=== PATIENT | female | born 1935 | race Caucasian/White ===

== ENCOUNTER 2019-11-13 11:37 | Outpatient (RCR) | payer MEDICARE, OTHER, MEDICAID, SELFPAY ==
[2019-11-13 12:19] LABS: Basophils % 0.1 %; Eosinophils # 0.4 10^3/uL (0.0-0.8); Eosinophils % 5.1 %; Hematocrit 35.8 % (37.0-47.0); Hemoglobin 11.3 g/dL (11.5-15.3); Lymphocytes # 1.8 10^3/uL (0.8-4.8); Lymphocytes % 24.1 %; Mean Corpuscular HGB Conc 31.6 g/dL (30.0-36.0); Mean Corpuscular Hemoglobin 31.4 pg (28.0-34.0); Mean Corpuscular Volume 99.4 fL (81-99); Mean Platelet Volume 10.9 fL (7.4-10.4); Monocytes # 0.5 10^3/uL (0.2-0.9); Monocytes % 6.6 %; Neutrophils # 4.8 10^3/uL (1.8-7.7); Neutrophils % 63.8 %; Nucleated Red Blood Cells % 0 %; Platelet Count 152 10^3/cmm (130-400); White Blood Count 7.4 10^3/uL (4.0-10.0)
[2019-11-13 12:52] LABS: Uric Acid 5.7 mg/dL (2.4-5.7)
[2019-11-13 13:48] LABS: C Reactive Protein 15.2 mg/L (0.0-4.9)
== END 2019-11-20 23:59 | disposition home or self-care (01) ==
LOC: LAB 11:37
PROVIDERS: Family Provider Family Medicine; Visit Provider Nurse Practitioner Family
DX: Z01.89 Encounter for other specified special examinations (principal)
CPT/HCPCS: 84550; 85025; 86140

== ENCOUNTER 2019-12-22 08:30 | Outpatient (CLI) | payer MEDICARE, MEDICAID, SELFPAY ==
--- NOTE | 2019-12-22 08:30 | CT_ITS ---
WS: [id number] CT scan of the abdominal aorta and the lower extremity arteries. Additional two-dimensional coronal a nd sagittal reconstruction was performed. MIP images were also performed. 12/22/2019 Clinical Data: perip artery disease Comparison: CT abdomen and pelvis, 06/01/2015. DLP: 2143.[address] scans at [facility] use at least one of these dose optimization techniques: automat ed exposure control; mA and/or kV adjustment per patient size (includes targeted exams where dose is matched to clinical indication); or iterative reconstruction. Findings: Abdominal aorta shows atherosclerotic change but no aneurysm. The celiac and superior mesenteric tong rom remain patent. There is a right renal artery stent unchanged. The left renal arteries unremarkab le. The common iliac arteries are well seen and they bifurcate into the internal and external iliac a rteries. The common femoral arteries are normal and the superficial femoral arteries fill normally. T here is atherosclerotic change of the length of both superficial femoral arteries. The popliteal tong rom and arteries of the trifurcations all fill but there is atherosclerotic change of all of these a rteries. The contrast material can be seen down to the level of the feet. No obstruction or significa nt stenosis is seen. CT abdomen and pelvis findings: There is a 3.52 cm enhancing lesion of the superior lateral aspect of the left kidney which was not p resent before. This could represent a small renal cancer. Small bilateral renal cortical cysts are no [place]. The lower lungs show no nodules or masses. There is a small left effusion. There is a small pericardi al effusion and cardiomegaly. The liver, spleen, gallbladder, pancreas and adrenal glands are unremar kable. The left kidney is small but it does have an exophytic 3.52 cm lesion which could represent a small l eft renal tumor. The renal cortices are both thin but the right kidney is larger than left. No hydron ephrosis or renal calculi can be seen. The stomach, small bowel and colon show no appendicitis or div erticulitis. There are numerous sigmoid diverticula and a large amount of fecal material throughout t he colon. The bladder and rectum are not remarkable. The patient has a right hip arthroplasty in good position. There is repair of a left intertrochanteric hip fracture with a long intramedullary carmen ex tending the length of the femur. There is a right knee arthroplasty. There is osteoarthritic change o f the lower thoracic vertebral bodies. There is osteoarthritis of the lumbar vertebral bodies with d isc narrowing at L3-L4 and degenerative disks at L4-L5 and L5-S1. There is a subluxation of L3 on L4 of 0.[address]/CT angio abd aorta runof [id number] Impression: 1. Exophytic 3.5 cm mass in the upper outer aspect of the left kidney which co uld represent a renal tumor. 2. Atherosclerotic changes of the abdominal aorta and all the distal arteries w ith no significant stenoses or occlusions. Contrast material is seen traveling into the arteries of the ankle and feet. 3.
[2019-12-22] MEDS: iodixanol 320 mg/mL 100mL Btl IV (09:50)
== END 2019-12-22 08:31 | disposition home or self-care (01) ==
LOC: RAD 08:34
PROVIDERS: Family Provider Family Medicine; PCP Family Medicine; Visit Provider Thoracic Surgery (Cardiothoracic Vascular Surgery)
DX: I73.9 Peripheral vascular disease, unspecified (principal); I70.0 Atherosclerosis of aorta; N28.89 Other specified disorders of kidney and ureter
CPT/HCPCS: 75635

== ENCOUNTER 2020-02-01 19:34 | Inpatient (IN) | payer MEDICARE, MEDICAID, SELFPAY ==
[2020-02-01] VITALS (8 sets, daily range): BP systolic 109–144; BP diastolic 46–54; PULSE 73–107; RESP 23–28; TEMP 37–37.2; O2SAT 65–100; BMI 29.0
--- NOTE | 2020-02-01 19:41 | W.ED.AMS ---
HPI - Altered Mental Status General: Chief Complaint: Shortness of Breath/Dyspnea Stated Complaint: SOB Time Seen by Provider: 02/01/20 19:38 Source: EMS Mode of arrival: EMS Limitations: altered mental status History of Present Illness: HPI narrative: 84-year-old female here from [facility] with altered mental status and respiratory distress. Patient wears 3 to 4 L oxygen there and was satting 80% on that. Per correction staff patient usually is awake and alert and able answer all her questions. Here patient only moans and is able to answer any my questions. She has been afebrile and temperature is 97 with EMS. No known cough. Patient's abdomen is distended here. She has had a history of a stroke in the past and is on blood thinners. Review of Systems General: Reports: ROS unobtainable due to mental status PFS ED PFSH: Medical History (Updated 02/01/20 @ 23:37 by Graciela Ruiz MD) PAD (peripheral artery disease) Family History (Updated 12/03/19 @ 15:48 by Salma Biggs LPN) Other CAD (coronary artery disease) Cancer Diabetes Hyperlipidemia Hypertension Social History (Updated 12/03/19 @ 15:48 by Salma Biggs LPN) Smoking and tobacco status: unknown if ever smoked Alcohol intake: never Physical Exam Const: EXAM LIMITATIONS: altered mental status GENERAL APPEARANCE: in distress HENMT: COMMON NORMALS: normocephalic and head/scalp atraumatic HEAD & SCALP: normocephalic and atraumatic Eye: COMMON NORMALS: PERRL and EOMs intact bilaterally PUPIL: Yes PERRL Neck/C-Spine: COMMON NORMALS: full ROM and supple Chest: COMMONS NORMALS: inspection of chest normal and palpation of chest normal Resp: COMMON NORMALS: no retractions and no use of accessory muscles EFFORT & INSPECTION: Yes tachypneic AUSCULTATION: rales Cardio: COMMON NORMALS: regular rate, regular rhythm and no murmurs RATE: regular rate RHYTHM: regular rhythm GI: COMMON NORMALS: no masses INSPECTION: Yes abdominal distension AUSCULTATION: Yes hypoactive bowel sounds PALPATION: Yes firm Extremity: COMMON NORMALS: normal to inspection and full ROM Neuro: COMMON NORMALS: moves all extremities and no focal motor deficits Psych: COMMON NORMALS: mental status grossly normal, thought process normal and cooperative THOUGHT PROCESS: normal thought process Skin: COMMON NORMALS: no rashes or lesions noted and no wounds GENERAL SKIN EXAM: no rashes or lesions noted Course Vital Signs: Vital signs: Vital Signs Temperature 98.6 F 02/01/20 19:35 Pulse Rate 89 02/01/20 20:15 Respiratory Rate 28 H 02/01/20 20:15 Blood Pressure 144/54 02/01/20 20:15 Pulse Oximetry 98 02/01/20 20:15 MDM - Altered Mental Status MDM Narrative: Medical decision making narrative: Patient presents here with altered mental status along with shortness of breath and was found to have pneumonia on CT. Patient continued to have altered no status here likely due to her pneumonia. Patient started on antibiotics and did get blood cultures. I spoke to hospitalist will admit to the hospital. Patient will be tested for coronavirus as well. Lab Data: Labs: Lab Results 02/01/20 02/01/20 02/01/20 Range/Units 19:47 19:47 19:47 WBC 11.0 H (4.0-10.0) 10^3/ uL RBC 4.34 (4.1-5.3) 10^6/u L Hgb 12.8 (11.5-15.3) g/dL Hct 41.6 (37.0-47.0) % MCV 95.9 (81-99) fL MCH 29.5 (28.0-34.0) pg MCHC 30.8 (30.0-36.0) g/dL RDW 14.8 (12.1-15.1) % Plt Count 289 (130-400) 10^3/c mm MPV 9.9 (7.4-10.4) fL Neut % (Auto) 87.4 % Lymph % (Auto) 9.8 % [place] % (Auto) 1.0 % Eos % (Auto) 1.4 % Baso % (Auto) 0.2 % Neut # (Auto) 9.7 H (1.8-7.7) 10^3/u L Lymph # (Auto) 1.1 (0.8-4.8) 10^3/u L [place] # (Auto) 0.1 L (0.2-0.9) 10^3/u L Eos # (Auto) 0.2 (0.0-0.8) 10^3/u L Baso # (Auto) 0.0 (0.0-0.1) 10^3/u L Nucleated RBC % (a uto) 0 % Nucleated RBCs # 0.0 /100WBC PT 16.40 H (10.5-13.3) SECO NDS INR 1.27 H (0.8-1.2) Specimen Type Sample Site ABG pH (7.35-7.45) ABG pCO2 (35-45) mmHg ABG pO2 (80.0-100.0) mmH g ABG HCO3 (22-26) mmol/L ABG Base Excess (-2.0-2.0) mmol/ L Milind Test Hematocrit (37-47) % O2 Delivery Device O2 Liters/Min % Home Health Speech Therapist ID Sodium 135 L (136-145) mmol/L Potassium 5.9 H (3.5-5.1) mmol/L Chloride 99 (98-107) mmol/L Carbon Dioxide 27 (22-29) mmol/L Anion Gap 14.9 (5-19) BUN 28 H (8-23) mg/dL Creatinine 1.3 H (0.5-0.9) mg/dL Glucose 398 H (65-115) mg/dL POC Glucose (70-110) mg/dL Calculated Osmolal ity 294 (285-295) mOsm/k g Lactate (0.5-2.2) mmol/L Calcium 10.2 (8.5-10.5) mg/dL Magnesium 2.0 (1.7-2.3) mg/dL Total Bilirubin 0.4 (0.15-1.2) mg/dL AST 14 (0-32) U/L ALT 13 (0-33) U/L Alkaline Phosphata se 128 H (35-105) IU/L Ammonia (11-51) umol/L Troponin T Baselin e (0-10) ng/mL Troponin T 120 Min [place] (0-10) ng/mL Delta Troponin T (0-10) ABS# NT-Pro-B Natriuret Pep 527 H (0-450) pg/mL Total Protein 7.9 (6.6-8.7) g/dL Albumin 3.7 (3.5-5.2) g/dL Globulin 4.2 (1.3-4.6) g/dL Lipase 28 (13-60) U/L 02/01/20 02/01/20 02/01/20 Range/Units 19:47 19:47 20:15 WBC (4.0-10.0) 10^3/ uL RBC (4.1-5.3) 10^6/u L Hgb (11.5-15.3) g/dL Hct (37.0-47.0) % MCV (81-99) fL MCH (28.0-34.0) pg MCHC (30.0-36.0) g/dL RDW (12.1-15.1) % Plt Count (130-400) 10^3/c mm MPV (7.4-10.4) fL Neut % (Auto) % Lymph % (Auto) % [place] % (Auto) % Eos % (Auto) % Baso % (Auto) % Neut # (Auto) (1.8-7.7) 10^3/u L Lymph # (Auto) (0.8-4.8) 10^3/u L [place] # (Auto) (0.2-0.9) 10^3/u L Eos # (Auto) (0.0-0.8) 10^3/u L Baso # (Auto) (0.0-0.1) 10^3/u L Nucleated RBC % (a uto) % Nucleated RBCs # /100WBC PT (10.5-13.3) SECO NDS INR (0.8-1.2) Specimen Type Arterial Sample Site Radial, right ABG pH 7.27 L (7.35-7.45) ABG pCO2 58.0 H (35-45) mmHg ABG pO2 87.8 (80.0-100.0) mmH g ABG HCO3 26.9 H (22-26) mmol/L ABG Base Excess -1.3 (-2.0-2.0) mmol/ L Milind Test Pos Hematocrit 47.4 H (37-47) % O2 Delivery Device Nc O2 Liters/Min 5.0 % Home Health Speech Therapist ID anonymous Sodium (136-145) mmol/L Potassium (3.5-5.1) mmol/L Chloride (98-107) mmol/L Carbon Dioxide (22-29) mmol/L Anion Gap (5-19) BUN (8-23) mg/dL Creatinine (0.5-0.9) mg/dL Glucose (65-115) mg/dL POC Glucose (70-110) mg/dL Calculated Osmolal ity (285-295) mOsm/k g Lactate 2.1 (0.5-2.2) mmol/L Calcium (8.5-10.5) mg/dL Magnesium (1.7-2.3) mg/dL Total Bilirubin (0.15-1.2) mg/dL AST (0-32) U/L ALT (0-33) U/L Alkaline Phosphata se (35-105) IU/L Ammonia (11-51) umol/L Troponin T Baselin e 28 H (0-10) ng/mL Troponin T 120 Min [place] (0-10) ng/mL Delta Troponin T (0-10) ABS# NT-Pro-B Natriuret Pep (0-450) pg/mL Total Protein (6.6-8.7) g/dL Albumin (3.5-5.2) g/dL Globulin (1.3-4.6) g/dL Lipase (13-60) U/L 02/01/20 02/01/20 02/01/20 Range/Units 20:24 21:38 22:47 WBC (4.0-10.0) 10^3/ uL RBC (4.1-5.3) 10^6/u L Hgb (11.5-15.3) g/dL Hct (37.0-47.0) % MCV (81-99) fL MCH (28.0-34.0) pg MCHC (30.0-36.0) g/dL RDW (12.1-15.1) % Plt Count (130-400) 10^3/c mm MPV (7.4-10.4) fL Neut % (Auto) % Lymph % (Auto) % [place] % (Auto) % Eos % (Auto) % Baso % (Auto) % Neut # (Auto) (1.8-7.7) 10^3/u L Lymph # (Auto) (0.8-4.8) 10^3/u L [place] # (Auto) (0.2-0.9) 10^3/u L Eos # (Auto) (0.0-0.8) 10^3/u L Baso # (Auto) (0.0-0.1) 10^3/u L Nucleated RBC % (a uto) % Nucleated RBCs # /100WBC PT (10.5-13.3) SECO NDS INR (0.8-1.2) Specimen Type Sample Site ABG pH (7.35-7.45) ABG pCO2 (35-45) mmHg ABG pO2 (80.0-100.0) mmH g ABG HCO3 (22-26) mmol/L ABG Base Excess (-2.0-2.0) mmol/ L Milind Test Hematocrit (37-47) % O2 Delivery Device O2 Liters/Min % Home Health Speech Therapist ID Sodium (136-145) mmol/L Potassium (3.5-5.1) mmol/L Chloride (98-107) mmol/L Carbon Dioxide (22-29) mmol/L Anion Gap (5-19) BUN (8-23) mg/dL Creatinine (0.5-0.9) mg/dL Glucose (65-115) mg/dL POC Glucose 247 (70-110) mg/dL Calculated Osmolal ity (285-295) mOsm/k g Lactate (0.5-2.2) mmol/L Calcium (8.5-10.5) mg/dL Magnesium (1.7-2.3) mg/dL Total Bilirubin (0.15-1.2) mg/dL AST (0-32) U/L ALT (0-33) U/L Alkaline Phosphata se (35-105) IU/L Ammonia 20 (11-51) umol/L Troponin T Baselin e (0-10) ng/mL Troponin T 120 Min [place] 29.71 H (0-10) ng/mL Delta Troponin T 1.71 (0-10) ABS# NT-Pro-B Natriuret Pep (0-450) pg/mL Total Protein (6.6-8.7) g/dL Albumin (3.5-5.2) g/dL Globulin (1.3-4.6) g/dL Lipase (13-60) U/L Imaging Data^: CT Head: Attestation: I personally reviewed and interpreted this imaging study as follows: Radiologist's impression: [address] [place] [address] CT Scan Report Signed Patient: Madelin Johansen Unit #: [id number] : 1935 Age/Sex: 84 / F ADM Date: 02/01/20 Loc: ER Room/Bed: Attending Dr: Ordering Provider/Ordering MD: Graciela Ruiz MD Date of Service: 02/01/20 Procedure(s): CT head wo con* [id number] Accession Number(s): [id number] Report Number: [id number] PROCEDURE INFORMATION: Exam: CT Head Without Contrast Exam date and time: 02/01/2020 8:13 PM Age: 84 years old Clinical indication: Altered mental status/memory loss; Additional info: AMS TECHNIQUE: Imaging protocol: Computed tomography of the head without contrast. Total DLP: 1499.89 mGy-cm Radiation optimization: All CT scans at this facility use at least one of these dose optimization techniques: automated exposure control; mA and/or kV adjustment per patient size (includes targeted exams where dose is matched to clinical indication); or iterative reconstruction. COMPARISON: CT head wo con* [id number] 09/12/2018 2:07 PM FINDINGS: Brain: There is chronic infarct in the right posterior parietal lobe not significantly changed. There is moderate cortical atrophy. Low-density changes are present in the white matter regions in keeping nonspecific small vessel chronic ischemic change. Midline shift: There is no shift of midline structures. Ventricles: Normal. No ventriculomegaly. Bones/joints: Unremarkable. No acute fracture. Sinuses: Visualized sinuses are unremarkable. No fluid levels. Mastoid air cells: Visualized mastoid air cells are well aerated. Soft tissues: Unremarkable. Vasculature: Atherosclerotic changes are again seen in the vertebral and internal carotid arteries. Other findings: Findings are not significantly changed from previous. CT/CT head wo con* [id number] IMPRESSION: 1. Chronic right posterior parietal infarct not significantly changed. 2. Atrophy and chronic ischemic changes. 3. No acute intracranial finding. CT Chest: Radiologist's impression: [address] [place] [address] CT Scan Report Signed Patient: Madelin Johansen Unit #: [id number] : 1935 Age/Sex: 84 / F ADM Date: 02/01/20 Loc: ER Room/Bed: Attending Dr: Ordering Provider/Ordering MD: Graciela Ruiz MD Date of Service: 02/01/20 Procedure(s): CT angio chest w abd pel w con Accession Number(s): [id number] Report Number: [id number] PROCEDURE INFORMATION: Exam: CT Angiography Chest With Contrast Exam date and time: 02/01/2020 8:13 PM Age: 84 years old Clinical indication: Bloating; Shortness of breath; Additional info: SOB TECHNIQUE: Imaging protocol: Computed tomographic angiography of the chest with intravenous contrast. 3D rendering: MIP and/or 3D reconstructed images were created by the technologist. Total DLP: 2156.9 mGy-cm Radiation optimization: All CT scans at this facility use at least one of these dose optimization techniques: automated exposure control; mA and/or kV adjustment per patient size (includes targeted exams where dose is matched to clinical indication); or iterative reconstruction. Contrast material: VISIPAQUE 320; Contrast volume: 95 ml; Contrast route: IV; COMPARISON: CR XR chest 1V portable [id number] 02/01/2020 8:49 PM FINDINGS: Pulmonary arteries: No visible pulmonary embolism/pulmonary arterial thrombus. Aorta: The thoracic aorta is nonaneurysmal. Moderately advanced arterial sclerotic disease. Lungs: Densely consolidated patchy subsegmental alveolar airspace disease right lower lobe of active pneumonia. Small volume patchy ground-glass interstitial lung disease right upper lobe and right middle lobe of active pneumonitis. Left lung currently spared. Minimal dependent atelectasis/parenchymal scar left lung base. Motion artifact. Pleural space: No visible active pleural based disease or pleural effusion. No visible pneumothorax. Heart: Advanced 3 vessel coronary artery disease. Mild cardiomegaly. Lymph nodes: No visible active mediastinal or hilar lymphadenopathy. Bones/joints: Age-appropriate degenerative disease and degenerative disc disease with spondylosis deformans. Osteopenia/osteoporosis. Soft tissues: Unremarkable. IMPRESSION: 1. No visible pulmonary embolism. 2. Right lung pneumonitis/pneumonia as detailed in text above. 3. Advanced 3 vessel coronary artery disease. PROCEDURE INFORMATION: Exam: CT Abdomen And Pelvis With Contrast Exam date and time: 02/01/2020 8:13 PM Age: 84 years old Clinical indication: Bloating; Shortness of breath; Additional info: SOB TECHNIQUE: Imaging protocol: Computed tomography of the abdomen and pelvis with intravenous contrast. Total DLP: 2156.9 mGy-cm Radiation optimization: All CT scans at this facility use at least one of these dose optimization techniques: automated exposure control; mA and/or kV adjustment per patient size (includes targeted exams where dose is matched to clinical indication); or iterative reconstruction. Contrast material: VISIPAQUE 320; Contrast volume: 95 ml; Contrast route: IV; COMPARISON: CR XR chest 1V portable [id number] 02/01/2020 8:49 PM FINDINGS: Liver: Liver without visible hepatic mass or cyst. Gallbladder and bile ducts: Moderate intra and extrahepatic biliary ectasia unchanged since 06/01/2015. Status post cholecystectomy. Pancreas: Pancreas unremarkable for age. No visible pancreatic ductal ectasia. Spleen: Spleen unremarkable. Adrenals: Adrenal glands unremarkable. Kidneys and ureters: Motion artifact. Left renal arterial stent. Small simple renal cortical cyst right kidney stable since 2014. No hydronephrosis or perinephric fluid. Stable small simple cyst equator left kidney since 2014. No visible nephrolithiasis or nephrocalcinosis. Stomach and bowel: Diverticulosis coli, primarily the sigmoid colon, without evidence for acute diverticulitis. Nonobstructive bowel pattern. No evidence for adynamic or reactive ileus. Appendix: No evidence of appendicitis. Intraperitoneal space: No visible intraperitoneal ascites. Vasculature: The abdominal aorta is nonaneurysmal. Moderately advanced arterial sclerotic disease. Left renal arterial stent. Lymph nodes: No visible evidence for panniculitis /mesenteritis or evidence of mesenteric lymphadenopathy/lymphadenitis. No visible retroperitoneal lymphadenopathy. Bladder: Unremarkable as visualized. Reproductive: Status post hysterectomy. Bones/joints: Extensive metal artifact from a right total hip prosthesis and compression screw and intramedullary carmen left hip limits assessment of the pelvis. Advanced degenerative disease and degenerative disc disease of the lumbosacral spine primarily L3-L4, L4/L 5, and L5/S1 with vacuum disc phenomenon L4/L 5 and L5/S1. Facet arthrosis. Osteopenia/osteoporosis. Soft tissues: Unremarkable. Motion artifact. CT/CT angio chest w abd pel w con IMPRESSION: 1. No visible evidence of active or acute abdominal or pelvic pathologic process. 2. Numerous nonacute, nonemergent, chronic, and age related findings detailed in text above. EKG Data^: EKG 1: Attestation: I personally reviewed and interpreted this EKG as follows: EKG interpretation date: 02/01/20 EKG interpretation time: 20:07 Interpretation: afib hr [address] or t wave abnormalities rbbb qrs 131 qtc 414 Discharge Plan Discharge Patient Disposition: Admitted As Inpatient Admit Provider: Ryan Luna Clinical Impression: Community acquired pneumonia Qualifiers: Laterality: right Lung location: unspecified part of lung Qualified Code(s): J18.9 - Pneumonia, unspecified organism Altered mental state Qualifiers: Altered mental status type: unspecified Qualified Code(s): R41.82 - Altered mental status, unspecified Condition: Stable Referrals: Jaja Owens MD [Family Provider] - Oliver Nowak [Primary Care Provider] - Interventions: ED Discharge Assessment Last Done: 02/01/20 23:16 Discharge Date/Time: 02/01/20 23:35 Coding Level of Care Code ED Pararescue Manager for Chg Fwd Exam Comprehensive
--- NOTE | 2020-02-01 19:43 | XR_ITS ---
WS: [id number] PORTABLE CHEST HISTORY: sob COMPARISON: 09/12/2018 Hyperinflated lungs with scattered opacifications. Ill-defined opacifications throughout the RIGHT italo ng. No pleural effusion or pneumothorax. Cardiac size: Moderately enlarged cardiac silhouette. Mediastinum/Aorta: Mildly prominent mediastinum. Thoracic aorta is ectatic. Moderate calcification wi thin the aorta. Osteopenia. XR/XR chest 1V portable [id number] IMPRESSION: 1. Scattered ill-defined opacifications throughout the RIGHT lung. Multifocal pneumonia or neoplasm. 2. Moderate cardiomegaly.
--- NOTE | 2020-02-01 20:07 | ECG_ITS ---
Measurements Intervals [place] Rate: 82 P: [place]: 0 QRS: -60 QRSD: 131 T: 21 QT: 376 QTc: 440 ATRIAL FIBRILLATION WITH ABERRANT CONDUCTION OR VENTRICULAR PREMATURE COMPLEXES RIGHT BUNDLE BRANCH BLOCK POSSIBLE ANTERIOR MYOCARDIAL INFARCTION , OF INDETERMINATE AGE INFERIOR MYOCARDIAL INFARCTION , PROBABLY OLD MODERATE T-WAVE ABNORMALITY, CONSIDER LATERAL ISCHEMIA Compared to ECG 09/10/2018 21:35:28 Ventricular premature complex(es) now present Aberrant conduction of supraventricular beat(s) now present T-wave abnormality now present Possible ischemia now present Left-axis deviation no longer present Myocardial infarct finding still present Electronically Signed On 02-02-2020 19:56:22 CDT by Susie Hsu M.D. [email or web address]
[2020-02-01 20:19] LABS: Basophils % 0.2 %; Eosinophils # 0.2 10^3/uL (0.0-0.8); Eosinophils % 1.4 %; Hematocrit 41.6 % (37.0-47.0); Hemoglobin 12.8 g/dL (11.5-15.3); Lymphocytes # 1.1 10^3/uL (0.8-4.8); Lymphocytes % 9.8 %; Mean Corpuscular HGB Conc 30.8 g/dL (30.0-36.0); Mean Corpuscular Hemoglobin 29.5 pg (28.0-34.0); Mean Corpuscular Volume 95.9 fL (81-99); Mean Platelet Volume 9.9 fL (7.4-10.4); Monocytes # 0.1 10^3/uL (0.2-0.9); Neutrophils # 9.7 10^3/uL (1.8-7.7); Neutrophils % 87.4 %; Nucleated Red Blood Cells % 0 %; Platelet Count 289 10^3/cmm (130-400); Red Blood Count 4.34 10^6/uL (4.1-5.3); Red Cell Distribution Width 14.8 % (12.1-15.1)
[2020-02-01 20:27] LABS: INR 1.27 (0.8-1.2)
[2020-02-01 20:28] LABS: Lactate (Lactic Acid level) 2.1 mmol/L (0.5-2.2)
[2020-02-01 20:33] LABS: Troponin(5th) Baseline 28 ng/mL (0-10)
[2020-02-01 20:40] LABS: Alanine Aminotransferase 13 U/L (0-33); Albumin Level 3.7 g/dL (3.5-5.2); Alkaline Phosphatase 128 IU/L (35-105); Anion Gap 14.9 (5-19); Aspartate Amino Transferase 14 U/L (0-32); Blood Urea Nitrogen 28 mg/dL (8-23); Calcium 10.2 mg/dL (8.5-10.5); Carbon Dioxide 27 mmol/L (22-29); Chloride 99 mmol/L (98-107); Globulin 4.2 g/dL (1.3-4.6); Glucose 398 mg/dL (65-115); Lipase 28 U/L (13-60); NT Pro B Type Natriuretic Pept 527 pg/mL (0-450); Osmolality Calculated 294 mOsm/kg (285-295); Potassium 5.9 mmol/L (3.5-5.1); Sodium 135 mmol/L (136-145); Total Bilirubin 0.4 mg/dL (0.15-1.2); Total Protein 7.9 g/dL (6.6-8.7)
[2020-02-01 20:53] LABS: ABG PH Result 7.27 (7.35-7.45); Arterial Blood Gas Hematocrit 47.4 % (37-47); Base Excess ABG -1.3 mmol/L (-2.0-2.0); Blood Gas Allen Test Pos; Blood Gas Sample Site Radial, right; Blood Gas Sample Type Arterial; HCO3 ABG 26.9 mmol/L (22-26); Oxygen Device NC; PO2 ABG 87.8 mmHg (80.0-100.0)
[2020-02-01 21:21] LABS: Ammonia 20 umol/L (11-51)
[2020-02-01] MEDS: insulin regular-human 100 units/1 mL 6 UNIT IVP (21:38)
[2020-02-01] MEDS: piperacillin-tazobactam 4.5 GM in sodium chloride 0.9% (plus) 50 ML IV (21:57)
[2020-02-01 22:09] LABS: Troponin 5 2HR 29.71 ng/mL (0-10); Troponin 5 2HR Delta 1.71 ABS# (0-10)
[2020-02-01] MEDS: vancomycin 1,000 MG in sodium chloride 0.9% 250 ML 250 MG IV (22:22)
--- NOTE | 2020-02-01 22:35 | PC.NURSE ---
COVID 19 swab test performed
--- NOTE | 2020-02-01 22:53 | ECG_ITS ---
Measurements Intervals [place] Rate: 75 P: [place]: 0 QRS: -52 QRSD: 141 T: -38 QT: 424 QTc: 474 ATRIAL FIBRILLATION RIGHT BUNDLE BRANCH BLOCK LEFT ANTERIOR FASCICULAR BLOCK POSSIBLE ANTERIOR MYOCARDIAL INFARCTION , OF INDETERMINATE AGE Compared to ECG 09/10/2018 21:35:28 Left anterior fascicular block now present Left-axis deviation no longer present Myocardial infarct finding still present Electronically Signed On 02-03-2020 10:34:50 CDT by Susie Hsu M.D. [email or web address]
[2020-02-01 22:58] LABS: Glucose Point of Care 247 mg/dL (70-110)
[2020-02-01] MEDS: sodium chloride 0.9% 1,000 ML 999 ML IV (23:02)
[2020-02-02] VITALS (30 sets, daily range): BP systolic 76–111; BP diastolic 36–70; PULSE 51–91; RESP 12–22; TEMP 37.1–37.2; O2SAT 74–95
[2020-02-02 00:05] LABS: Glucose Point of Care 230 mg/dL (70-110)
[2020-02-02 00:45] LABS: ABG PCO2 54.7 mmHg (35-45); ABG PH Result 7.26 (7.35-7.45); Arterial Blood Gas Hematocrit 33.1 % (37-47); Base Excess ABG -2.9 mmol/L (-2.0-2.0); Blood Gas Allen Test Pos; Blood Gas Sample Site Radial, left; Blood Gas Sample Type Arterial; Carboxyhemoglobin 0.7 %THgb (0.4-20.1); HCO3 ABG 24.6 mmol/L (22-26); HGB O2 Sat 97.1 % (95-100); Ionized Calcium Level - ABG 1.2 mmol/L (1.1-1.4); Oxygen Device SIMPLE MASK; Oxygen Saturation ABG 98.7; Potassium Level - ABG 4.9 mmol/L (3.5-5.0); Total Hemoglobin 10.8 g/dL (12-16)
--- NOTE | 2020-02-02 01:12 | PC.PHAR ---
Creatinine clearance is 35.322. Vancomycin is dosed as in ER at 1gm IVPB every 24 hours to produce a predicted trough level of 16.75 (population based pharmacokinetic analysis). A trough level has been ordered from the lab to be obtained before the fourth dose to confirm and adjust if needed. The Zosyn is continued as 3.375gm IVPB every 8 hours, each dose to be infused over 4 hours per extended infusion protocol.
--- NOTE | 2020-02-02 01:16 | PC.NURSE ---
Patient arrived to room 112 at 2350, upon arrival patient non responsive, gurgling, and mildly flaccid. Patient sating 89% on 3L NC, belly breathing. Placed patient on oxymask at 6L, sating 100% after. Patient gurgling, attempted to suction with no results, patient still nonresponsive after suctioning. Patient bladder scanned as unsuccessful straight cath attempt in ER, resulted >[address] Luna of patient condition. Dr Luna at [facility], ok to place vaughan, and orders received to transfer to ICU. Report called to SCRAPER TENDER and patient transferred to ICU bed 2.
[2020-02-02 01:28] LABS: Lactic Sepsis W/Reflex 2.4 mmol/L (0.5-2.2)
[2020-02-02 01:29] LABS: Add Urine Microscopic? YES; Bilirubin Urine Neg (NEGATIVE); Blood Urine Neg (Negative); Glucose Urine UA 2+ (Normal); Ketones Urine 1+ (Negative); Leukocyte Esterase Urine 2+ (Negative); Nitrate Urine Positive (Negative); Protein Urine Trace (Negative); Sulfosalicylic Acid Urine Negative (Negative); Urine Appearance Hazy (CLEAR); Urine Color Yellow (Yellow); Urobilinogen Urine Norm (Negative); pH Urine 5 (5-7)
[2020-02-02 01:31] LABS: Troponin 5 6HR 31.91 ng/mL (0-10); Troponin 5 6HR Delta 3.91 ng/L (0-12)
[2020-02-02 01:33] LABS: Add Urine Culture? Yes; Bacteria Urine 4+; RBC Urine 0-4 /hpf (0-2); Squamous Epithelial Cell Urine 0-4 (0-5); WBC Urine TOO NUMEROUS TO CNT /hpf (0-5)
--- NOTE | 2020-02-02 01:37 | P.HP_ITS ---
Providers/Chief Complaint Admitting Physician: Ryan Luna MD Primary Care Provider: Oliver Nowak Chief Complaint: SOB History of Present Illness Madelin Johansen is a 84 year old female with a past medical history of stroke, left hemiplegia, aphasia, dysphasia, dysarthria. 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 difficile colitis, history of right toe ulcer who presents to the emergency room due to concerns for pneumonia, incr eased oxygen requirements and altered mental status. Patient is a resident of [facility] [place], according to staff there, patient had complaints of shortness of breath, had increased oxygen requirements up to 2 L oxygen, does not use oxygen at the retirement, chest x-ray revealed a right-sided pneumonia, she also had alterations of her mentation, was more confused. 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 But according to retirement staff she has been much more confused than her normal self. Patient was examined in the cardiac stepdown unit, patient is lethargic, nonresponsive, does not respond to sternal rub, she is saturating in the low 90s on 6 L, respiratory rate 20s to 30s, blood pressure is 109/46, her breathing is labored with a lot of secretions. Review of patient's blood gas shows a pH of 7.27, PO2 of 87.8, PCO2 58 on 3 L nasal cannula. Admission blood pressure was 96/60, pulse 68, respiratory rate 16, 95% on [address] chest shows dense right-sided pneumonia, but also has less sided infiltrates. Patient has a high risk of acute respiratory distress syndrome given increased oxygen requirements, nessa ateral infiltrates, given patient's nonresponsiveness even to sternal rub, she has poor ventilation, and high risk of unprotected airway. I spoke to patient's daughter Allison about the critical status, patient is a DNR.patient's daughter does not want chest compressions, does not want shocking. But I spoke to patient's daughter about mechanical ventilation including intubation, patient's daughter wants to give her mother a chance, she is okay with mechanical ventilation as long as not prolonged, I advised immediate that this decision will be made on a day-to-day basis, patient's daughter Allison agreed with intubation. I immediately moved the patient to the intensive care unit, I spoke to Dr. Ruiz, who currently came to the intensive care unit to intubate the patient. Patient was successfully intubated, placed on fentanyl, mechanical ventilation. Review of Systems General: Reports: ROS unobtainable due to mental status Medications/Allergies Home Medications Medication Instructions Recorded Confirmed Last Taken Type PNV cmb#95-ferrous fumarate-FA 1 tab PO DAILY 02/01/20 02/01/20 02/01/20 History [] docusate sodium [Colace] 200 mg PO DAILY 02/01/20 02/01/20 02/01/20 History honey [MediHoney (honey)] 1 applic TOPICAL DAILY 02/01/20 02/01/20 02/01/20 History ipratropium bromide 2.5 ml INHALATION Q6H PRN 02/01/20 02/01/20 02/01/20 History lidocaine 1 patch TOPICAL DAILY 02/01/20 02/01/20 02/01/20 History polyethylene glycol 3350 17 g PO DAILY 02/01/20 02/01/20 02/01/20 History tetrahydrozoline [Visine] 2 drp OPHTHALMIC (EYE) BID 02/01/20 02/01/20 02/01/20 History Allergies Allergy/AdvReac Type Severity Reaction Status Date / Time No Known Allergies Allergy Unverified 12/03/19 15:28 PFSH Acute PFSH: Medical History (Updated 02/02/20 @ 01:59 by Ryan Luna MD) COPD (chronic obstructive pulmonary disease) Coronary artery disease Dementia Diabetes mellitus Hyperlipemia Hypertension Hypothyroid PAD (peripheral artery disease) Surgical History (Updated 02/02/20 @ 01:57 by Ryan Luna MD) History of cholecystectomy History of heart artery stent History of hip surgery Previous back surgery S/P cataract surgery S/P knee surgery Family History (Updated 12/03/19 @ 15:48 by Salma Biggs LPN) Other CAD (coronary artery disease) Cancer Diabetes Hyperlipidemia Hypertension Social History (Updated 12/03/19 @ 15:48 by Salma Biggs LPN) Smoking and tobacco status: unknown if ever smoked Alcohol intake: never Vitals/I&O/Wt Last Vital Signs Temp 99.0 F 02/01/20 23:50 Pulse 73 02/01/20 23:50 Resp 24 H 02/01/20 23:50 BP 109/46 02/01/20 23:50 Pulse Ox 100 02/01/20 23:50 Weight last 48 hrs Weight 81.647 kg Physical Exam Const: EXAM LIMITATIONS: altered mental status GENERAL APPEARANCE: lethargic and diaphoretic ORIENTATION/CONSCIOUSNESS: Yes obtunded and Yes lethargic HENMT: COMMON NORMALS: normocephalic Eye: COMMON NORMALS: PERRL Neck/C-Spine: COMMON NORMALS: no lymphadenopathy Chest: COMMONS NORMALS: inspection of chest normal Resp: EFFORT & INSPECTION: Yes symmetric chest movement, Yes tachypneic, Yes uses accessory muscles and Yes audible wheezes AUSCULTATION: rhonchi, wheezes and bronchovesicular breath sounds Cardio: COMMON NORMALS: no JVD, regular rhythm, S1 normal heart sound and S2 normal heart sound RATE: tachycardic GI: COMMON NORMALS: normal to inspection, nondistended, normoactive bowel sounds, soft to palpation, non-tender and no hepatosplenomegaly Extremity: COMMON NORMALS: normal capillary refill, no clubbing, cyanosis or edema and no pedal edema Neuro: COMMON NORMALS: CN's II-XII intact bilaterally; negative for oriented x3 SENSORIUM/ORIENTATION: Yes obtunded Sepsis: Is patient septic: Yes Focused sepsis exam performed: Yes Date exam was performed: 02/02/20 Time exam was performed: 00:00 Data : 02/01/20 19:47 02/01/20 19:47 Micro: Microbiology 02/01/20 19:47 Blood Culture - Preliminary Blood SPECIMEN COLLECTED 02/01/20 19:56 Blood Culture - Preliminary Blood SPECIMEN COLLECTED A&P Assessment and plan (1) Acute respiratory failure with hypoxia: -Acute hypoxic respiratory failure with sepsis secondary to bilateral lobe pneumonia -Patient has a high risk of acute respiratory distress syndrome -Patient is nonresponsive, not responding to sternal rub, will smoke was intubated to protect airway, ensure adequate ventilation -Patient's POA is Allison daughter, #[phone] -White blood cell count 11,000, pro-Zack 22, lactic acid 2.4, creatinine 1.3 Plan: -Admit to the intensive care unit -Sputum cultures, blood cultures, urine cultures -Covid19 testing -Mechanically ventilated, minimize PEEP, minimize FiO2 -Fentanyl drip for sedation, can add on propofol if required -Daily ABGs, daily chest x-rays -Broad-spectrum antibiotics vancomycin, Zosyn, azithromycin -Influenza was not obtained on admission, influenza so far pending, started on low-dose Tamiflu given creatinine clearance, due to high risk of false negatives and critical status -Gentle IV hydration, Cheetah machine, maintain map greater than 65, Levophed as needed -Tube feedings through OG -DVT prophylaxis Eliquis -GI prophylaxis Protonix -Patient is DNR, okay with mechanical ventilation, okay with ICU admission -Patient has responded adequately to fluid boluses, has 2 IVs, no need for central line at this point -Patient status is critical, prognosis is guarded Status: Acute (2) Altered mental state: Status: Acute Qualifiers: Altered mental status type: unspecified Qualified Code(s): R41.82 - Altered mental status, unspecified (3) Lactic acidosis: Status: Acute (4) Acute kidney injury: Status: Acute (5) Atrial fibrillation: Status: Acute (6) NSTEMI (non-ST elevated myocardial infarction): -Likely supply demand ischemia from acute respiratory failure Plan: -Continue aspirin, statin, trend troponin, trend EKGs, echocardiogram ordered Status: Acute (7) Diabetes mellitus: Sliding scale Status: Acute (8) Hypertension: Status: Acute (9) Hypothyroid: Status: Acute (10) COPD (chronic obstructive pulmonary disease): Status: Acute (11) Coronary artery disease: Status: Acute (12) Community acquired pneumonia: Status: Acute Qualifiers: Laterality: right Lung location: unspecified part of lung Qualified Code(s): J18.9 - Pneumonia, unspecified organism (13) PAD (peripheral artery disease): Status: Acute (14) Sepsis: Status: Acute Attestations Medical Necessity Statement*: Patient requires inpatient admission, greater than 2 midnights, for acute respiratory failure secondary to pneumonia Coding Level of Care Code 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 [facility] Diagnoses Acute respiratory failure with hypoxia J96.01 Altered mental state R41.82 Altered mental status type: unspecified Lactic acidosis E87.2 Acute kidney injury N17.9 Atrial fibrillation I48.91 NSTEMI (non-ST elevated myocardial infarction) I21.4 Diabetes mellitus E11.9 Hypertension I10 Hypothyroid E03.9 COPD (chronic obstructive pulmonary disease) J44.9 Coronary artery disease I25.10 Community acquired pneumonia J18.9 Laterality: right Lung location: unspecified part of lung PAD (peripheral artery disease) I73.9 Sepsis A41.9 Sepsis Event Note Evaluation Current stage of sepsis: sepsis Possible source: pulmonary Focused Exam Vital Signs Temp Pulse Pulse Resp BP BP Pulse Ox 02/01/20 23:50 99.0 F 73 24 H 109/46 100 02/01/20 20:15 89 28 H 144/54 98 02/01/20 20:10 81 23 H 144/54 98 02/01/20 20:05 107 H 24 H 144/54 100 02/01/20 20:00 144/54 65 L 02/01/20 19:55 144/54 94 02/01/20 19:50 144/54 96 02/01/20 19:35 98.6 F 89 24 H 144/54 97 Respiratory exam: Present accessory muscle use, rales, stridor and wheezes Cardiovascular exam: Present tachycardia Capillary refill: < 3 Seconds Peripheral pulse strength: 2+ Slightly Diminished Peripheral pulse location: Pedal Skin exam: normal turgor Date exam was performed: 02/02/20 Time exam was performed: 02:02
--- NOTE | 2020-02-02 01:43 | XR_ITS ---
WS: [id number] PORTABLE CHEST HISTORY: post intubation COMPARISON: 02/01/2020 Nasogastric tube is in good position. Endotracheal tube ends just above the ricardo. Scattered opacifications, greatest throughout the RIGHT lung. Small bilateral pleural effusions. Cardiac size: Moderate cardiomegaly. Mediastinum/Aorta: Hilar regions are prominent. No osseous abnormality seen. XR/XR chest 1V portable 13325 IMPRESSION: 1. Endotracheal tube ends just above the ricardo and should be retracted 1 cm f rom positioning. 2. Nasogastric tube in good position. 3. Scattered opacifications throughout both lungs, greatest on the RIGHT. Like ly pneumonia. 4. Cardiomegaly.
[2020-02-02 01:54] LABS: Procalcitonin 22.35 ng/mL (0-0.5)
[2020-02-02 01:56] LABS: C Reactive Protein 52.7 mg/L (0.0-4.9); Magnesium 1.8 mg/dL (1.7-2.3)
[2020-02-02 01:59] LABS: Chol HDL Ratio 4.07 mg/dL (0.0-4.40); Cholesterol 110 mg/dL (0-200); HDL Cholesterol 27 mg/dL (60-100); LDL Cholesterol Calculated 64 mg/dL (50-129); LDL HDL Ratio 2.37 RATIO (0.00-3.22); Triglycerides 94 mg/dL (0-150)
[2020-02-02] MEDS: sodium chloride 0.9% 1,000 ML 100 ML IV (02:09)
[2020-02-02] MEDS: etomidate 10 ML 1 MG (02:09)
[2020-02-02] MEDS: rocuronium 10 mg/mL INJ 5mL 50 MG (02:10)
[2020-02-02] MEDS: enoxaparin 40 mg/0.4 mL Syringe SUBCUT (02:11)
[2020-02-02] MEDS: azithromycin 500 MG in sodium chloride 0.9% 250 ML 250 MG IV (02:15)
[2020-02-02] MEDS: lactated ringers 1,000 ML 100 ML (02:16)
[2020-02-02 02:26] LABS: Thyroid Stimulating Hormone 2.95 uIU/mL (0.27-4.20)
[2020-02-02 02:58] LABS: Reflex Lactate Order REFLEX LACTIC ORDERD
[2020-02-02 03:36] LABS: Cortisol Random 40.27 mcg/dL (2.47-19.5)
--- NOTE | 2020-02-02 04:31 | PC.NURSE ---
Pt arrived to ICU from [facility] at approximately 0130. Pt is unresponsive to verbal and painful stimuli. Vital signs charted. Golden cath to gravity. ER physician @ bedside for intubation. IV x 2 on right arm, patent. Hepafilter in place per hospitalist request. Levophed ordered to have at bedside. Intubation preformed by ER doc with 20 mg Etomidate, 100 Jan, size 8 ett, 24 @ gum line. OG inserted. Tube placement confirmed by cxray.
[2020-02-02] MEDS: ipratropium-albuterol 3 mL Neb INHALATION ×2 (04:54→07:33)
[2020-02-02 05:23] LABS: Lactic Acid level (Lactate) 3.3 mmol/L (0.5-2.2)
[2020-02-02 05:23] LABS: ABG PCO2 45.3 mmHg (35-45); ABG PH Result 7.31 (7.35-7.45); Alveolar-Arterial Oxygen Gradi 175.9 mmHg (5-10); Arterial Blood Gas Hematocrit 32.9 % (37-47); Base Excess ABG -3.3 mmol/L (-2.0-2.0); Blood Gas Sample Site Brachial, right; Blood Gas Sample Type Arterial; Carboxyhemoglobin 0.9 %THgb (0.4-20.1); HCO3 ABG 22.9 mmol/L (22-26); HGB O2 Sat 86.9 % (95-100); Ionized Calcium Level - ABG 1.2 mmol/L (1.1-1.4); Methemoglobin 0.7 % (0.4-1.5); Oxygen Device VENT; Oxygen Saturation ABG 88.3; PO2 ABG 52.3 mmHg (80.0-100.0); Potassium Level - ABG 6.1 mmol/L (3.5-5.0); Total Hemoglobin 10.7 g/dL (12-16)
[2020-02-02] MEDS: piperacillin-tazobactam 3.375 GM in sodium chloride 0.9% (plus) 50 ML IV (05:59)
[2020-02-02] MEDS: levothyroxine 100 mcg SDV 25 MCG IVP (08:01)
[2020-02-02] MEDS: atorvastatin 40 mg Tablet 20 MG PO (08:02)
[2020-02-02] MEDS: apixaban 5 mg Tablet PO (08:02)
[2020-02-02] MEDS: citalopram 20 mg Tablet PO (08:02)
[2020-02-02] MEDS: aspirin 81 mg EC Tablet PO (08:02)
[2020-02-02] MEDS: pantoprazole 40 mg SDV IVP (08:02)
[2020-02-02] MEDS: allopurinol 300 mg Tablet 150 MG PO (08:02)
[2020-02-02 08:59] LABS: Basophils # 0.1 10^3/uL (0.0-0.1); Basophils % 0.2 %; Hematocrit 33.5 % (37.0-47.0); Hemoglobin 10.1 g/dL (11.5-15.3); Lymphocytes # 1.5 10^3/uL (0.8-4.8); Lymphocytes % 5.9 %; Mean Corpuscular HGB Conc 30.1 g/dL (30.0-36.0); Mean Corpuscular Hemoglobin 29.4 pg (28.0-34.0); Mean Corpuscular Volume 97.4 fL (81-99); Mean Platelet Volume 10.2 fL (7.4-10.4); Monocytes # 0.9 10^3/uL (0.2-0.9); Monocytes % 3.5 %; Neutrophils # 22.2 10^3/uL (1.8-7.7); Neutrophils % 89.6 %; Nucleated Red Blood Cells % 0 %; Platelet Count 252 10^3/cmm (130-400); Red Blood Count 3.44 10^6/uL (4.1-5.3); Red Cell Distribution Width 15.3 % (12.1-15.1); White Blood Count 24.7 10^3/uL (4.0-10.0)
[2020-02-02 09:03] LABS: Glucose Point of Care 429 mg/dL (70-110)
[2020-02-02 09:16] LABS: Anion Gap 17.5 (5-19); Blood Urea Nitrogen 31 mg/dL (8-23); Calcium 8.5 mg/dL (8.5-10.5); Carbon Dioxide 23 mmol/L (22-29); Chloride 99 mmol/L (98-107); Glucose 447 mg/dL (65-115); Lactic Sepsis W/Reflex 2.9 mmol/L (0.5-2.2); Osmolality Calculated 293 mOsm/kg (285-295); Sodium 133 mmol/L (136-145)
[2020-02-02 09:23] LABS: Potassium 6.5 mmol/L (3.5-5.1)
--- NOTE | 2020-02-02 10:16 | P.PN_ITS ---
Subjective Subjective: Interval history: Patient admitted overnight. On examination today morning patient is on levo fed of 10, on mechanical ventilation saturating 95% with blood pressure 90/60 heart rate of 50 bpm. Labs and vitals noted. Vitals/I&O/Wt Last Vital Signs Temp 98.8 F 02/02/20 07:00 Pulse 52 L 02/02/20 09:10 Resp 14 02/02/20 09:08 BP 98/47 02/02/20 08:00 Pulse Ox 95 02/02/20 09:08 02/01/20 02/02/20 02/02/20 22:59 06:59 14:59 Intake Total 1328.888 / 1328.888 Output Total 550 / 550 Balance 778.888 / 778.888 Weight last 48 hrs Weight 81.647 kg Physical Exam Narrative: EXAM NARRATIVE: General: Sedated, intubated HEENT: PERRLA, pupils bilaterally equal and reactive Chest: Bilateral coarse crackles present in middle and lower zones, good air entry CVS: S1-S2 regular, no murmurs, bradycardia, no gallops, no rubs Abdomen: Soft, nontender, no organomegaly, bowel sounds present Neuro: Sedated HENMT: COMMON NORMALS: normocephalic HEAD & SCALP: normocephalic Eye: COMMON NORMALS: PERRL PUPIL: Yes PERRL Neck/C-Spine: COMMON NORMALS: no lymphadenopathy and no JVD Chest: COMMONS NORMALS: inspection of chest normal Resp: EFFORT & INSPECTION: Yes tachypneic and Yes uses accessory muscles Cardio: COMMON NORMALS: no JVD, regular rhythm, S1 normal heart sound and S2 normal heart sound RHYTHM: regular rhythm HEART SOUNDS: S1 normal and S2 normal GI: COMMON NORMALS: normal to inspection, nondistended, normoactive bowel sounds, soft to palpation, non-tender and no hepatosplenomegaly PALPATION: Yes soft and Yes no hepatosplenomegaly Extremity: COMMON NORMALS: normal capillary refill, no clubbing, cyanosis or edema and no pedal edema Data : 02/02/20 08:46 02/02/20 08:46 Micro: Microbiology 02/01/20 19:47 Blood Culture - Preliminary Blood SPECIMEN COLLECTED 02/01/20 19:56 Blood Culture - Preliminary Blood SPECIMEN COLLECTED A&P Assessment and plan (1) Septic shock: Status: Acute (2) Acute respiratory failure with hypoxia: Status: Acute (3) Community acquired pneumonia: Status: Acute Qualifiers: Laterality: right Lung location: unspecified part of lung Qualified Code(s): J18.9 - Pneumonia, unspecified organism (4) Altered mental state: Status: Acute Qualifiers: Altered mental status type: unspecified Qualified Code(s): R41.82 - Altered mental status, unspecified (5) Lactic acidosis: Status: Acute (6) Diabetes mellitus: Sliding scale Status: Acute (7) Acute kidney injury: Status: Acute (8) Atrial fibrillation: Status: Acute (9) NSTEMI (non-ST elevated myocardial infarction): Status: Acute (10) Hypertension: Status: Acute (11) Hypothyroid: Status: Acute (12) COPD (chronic obstructive pulmonary disease): Status: Acute (13) Coronary artery disease: Status: Acute (14) PAD (peripheral artery disease): Status: Acute Additional A&P Information Septic shock: Acute respiratory failure because of hypoxia secondary to CAP: Will ask for cheetah monitoring to see if patient will be fluid responsive. 1 L normal saline bolus. Continue IV fluids at 100 cc/h Saturations over 90%. On ventilator continue with same PEEP and decrease respiratory rate to increase CO2 levels for possible permissible hypercapnia for early ARDS. Continue with azithromycin, vancomycin, Zosyn at renal dose. Will de-escalate antibiotics as per sputum, blood, urine cultures. Check flu swab, MRSA PCR. COVID 19 pending. Continue with isolation precautions. Keep mean arterial pressure over 65 MAG. Can titrate Levophed accordingly. Lactic acidosis: Most likely because septic shock and because patient got a bolus of Ringer lactate last night. Will repeat lactate level stat 3 PM. Type 2 diabetes mellitus: DKA: Start patient on insulin drip keeping sugars between 200 and 250. Hyperkalemia: Most likely because of renal failure, septic shock and DKA. Calcium gluconate 1 g every 2 hours for 2 doses. Check potassium levels with BMP at 3 PM. Acute kidney injury: Baseline creatinine upon 0.9 at present 1.7 most likely because of severe septic shock. Medication reconciliation done for nephrotoxic drugs. Continue IV fluids as above above. Atrial fibrillation: Patient is bradycardic at present most likely because of hyperkalemia. We will continue to monitor. Continue with Eliquis at present. Hypertension: Patient is hypotensive at present. Continue with Levophed and hold off on oral antihypertensives for now. DNR/DNI N.p.o. We will hold off on tube feedings for now. Eliquis will also for DVT prophylaxis. We will try and call patient's daughter Ms. Cooper who is also the POA to discuss patient's goals of care as patient is severely sick with guarded prognosis given severe septic shock leading to multiorgan dysfunction. 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
[2020-02-02 10:43] LABS: Reflex Lactate Order REFLEX LACTIC ORDERD
[2020-02-02 10:44] LABS: Influenza A by IFA Negative (Negative); Influenza B by IFA Negative (Negative)
[2020-02-02] MEDS: morphine 4 mg/mL SDV 1 mL 2 MG IVP ×3 (14:18→22:05)
--- NOTE | 2020-02-02 14:26 | PC.RESP ---
PT EXTUBATE. PLACED ON 6 LPM SIMPLE MASK
[2020-02-02 15:25] LABS: Coronavirus Lab Test PTC Negative
--- NOTE | 2020-02-02 20:08 | PC.NURSE ---
wasted 35ML of fentanyl drip witnessed by David padron RN
[2020-02-02] MEDS: scopolamine 1.5 Patch 1 PATCH TRANSDERMA (23:44)
[2020-02-03] VITALS (11 sets, daily range): BP systolic 93–121; BP diastolic 41–63; PULSE 90–104; RESP 19–28; O2SAT 59–83
[2020-02-03] MEDS: LORazepam 2 mg/mL INJ 1 mL 1 MG IVP ×5 (01:50→23:22)
[2020-02-03] MEDS: morphine 4 mg/mL SDV 1 mL 2 MG IVP ×4 (06:37→23:22)
--- NOTE | 2020-02-03 07:43 | PM.PN ---
Subjective Subjective: Interval history: History and physical reviewed. Patient unresponsive. Medications: Reviewed: Yes Vitals/I&O/Wt Last Vital Signs Temp 98.9 F 02/02/20 16:00 Pulse 97 02/03/20 04:00 Resp 22 H 02/03/20 06:37 BP 116/41 02/03/20 04:00 Pulse Ox 77 L 02/03/20 06:37 02/02/20 02/03/20 02/03/20 22:59 06:59 14:59 Intake Total 54.125 / 54.125 Output Total 325 / 325 Balance 54.125 / 54.125 -325 / -270.875 Weight last 48 hrs Weight 81.647 kg Physical Exam Narrative: EXAM NARRATIVE: General exam is coarse breath sounds are noted bilaterally Cardiovascular regular rate and rhythm Lungs coarse Abdomen is soft, obese, positive bowel sounds Extremities no cyanosis or clubbing Data : 02/02/20 08:46 02/02/20 08:46 Micro: Microbiology 02/01/20 19:47 Blood Culture - Preliminary Blood NEGATIVE TO DATE 02/01/20 19:56 Blood Culture - Preliminary Blood NEGATIVE TO DATE 02/02/20 09:47 MRSA Culture - Final Nose A&P Assessment and plan (1) Septic shock: Moved to comfort measures. Antibiotics discontinued. Status: Acute (2) Acute respiratory failure with hypoxia: Persistent, secondary to pneumonia, oxygen saturation was 75% this morning with respiratory distress noted Status: Acute (3) Community acquired pneumonia: Move to comfort measures, antibiotics discontinued Status: Acute Qualifiers: Laterality: right Lung location: unspecified part of lung Qualified Code(s): J18.9 - Pneumonia, unspecified organism (4) Altered mental state: Unresponsive Status: Acute Qualifiers: Altered mental status type: unspecified Qualified Code(s): R41.82 - Altered mental status, unspecified (5) Lactic acidosis: Status: Acute (6) Diabetes mellitus: Sliding scale Status: Acute (7) Acute kidney injury: Fluids discontinued. Patient made comfort Status: Acute (8) Atrial fibrillation: Status: Acute (9) NSTEMI (non-ST elevated myocardial infarction): Status: Acute (10) Hypertension: Changed to comfort measures Status: Acute (11) Hypothyroid: Change to comfort measures Status: Acute (12) COPD (chronic obstructive pulmonary disease): Changed to comfort measures Status: Acute (13) Coronary artery disease: Status: Acute (14) PAD (peripheral artery disease): Status: Acute Additional A&P Information Dementia, severe Past history of CVA with left hemiplegia continue comfort measures Transfer out of ICU to floor Attestations Medical Necessity Statement*: Needs continued hospitalization to provide comfort care Coding Level of Care Code 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
--- NOTE | 2020-02-03 09:00 | PC.NURSE ---
TRANSFER TO FLOOR Patient transferred to [facility]. Receiving nurse in room upon arrival.
--- NOTE | 2020-02-03 11:32 | PC.NURSE ---
ORTHOPEDIC DENTIST notified nurse. Patient is on comfort care.
--- NOTE | 2020-02-03 14:45 | PC.NURSE ---
Patient has an active advanced directive, but it is not on file with facility. Daughter voiced that there has been an advanced directive for several years and states that Pt is an AND.
--- NOTE | 2020-02-03 15:05 | PC.RESP ---
Pulmonary Rehab information left with patient.
--- NOTE | 2020-02-03 15:13 | PC.NURSE ---
family was requesting oxygen and heart rate levels.
--- NOTE | 2020-02-03 15:15 | PC.NURSE ---
IV in Pt's right hand is no longer flushing, she does have a patent/intact line in her right AC space that I will continue to give comfort meds in. I am not going to remove IV in right hand at this time as Pt is on comfort measures.
[2020-02-04] VITALS: PULSE 96; O2SAT 74
[2020-02-04 04:00] VITALS: PULSE 92; O2SAT 80
--- NOTE | 2020-02-04 06:24 | PC.NURSE ---
Oral care performed with hourly rounding
[2020-02-04 07:58] VITALS: RESP 30
--- NOTE | 2020-02-04 09:06 | PC.SOCIAL ---
IM initialed and copied went to give to patient however she is on comfort care. Likely patient will not be leaving facility. Left form in room.
--- NOTE | 2020-02-04 09:10 | P.PN_ITS ---
Subjective Subjective: Interval history: Madelin is unresponsive. Medications: Reviewed: Yes Vitals/I&O/Wt Last Vital Signs Temp 98.9 F 02/02/20 16:00 Pulse 92 02/04/20 04:00 Resp 30 H 02/04/20 07:58 BP 98/54 02/03/20 08:00 Pulse Ox 80 L 02/04/20 04:00 02/03/20 02/04/20 02/04/20 22:59 06:59 14:59 Output Total 250 / 250 700 / 950 Balance -250 / -250 -700 / -950 Physical Exam Narrative: EXAM NARRATIVE: General exam is coarse breath sounds are noted bilaterally, right greater than left Cardiovascular regular rate and rhythm Lungs coarse Abdomen is soft, obese, positive bowel sounds Extremities no cyanosis or clubbing Neurologic: Unresponsive Data : 02/02/20 08:46 02/02/20 08:46 A&P Assessment and plan (1) Septic shock: Moved to comfort measures. Antibiotics discontinued. At this point patient appears comfortable. I discussed her case with her daughter yesterday who was at bedside. The plan is to continue comfort measures here. Status: Acute (2) Acute respiratory failure with hypoxia: Persistent, secondary to pneumonia. Status: Acute (3) Community acquired pneumonia: Move to comfort measures, antibiotics discontinued Status: Acute Qualifiers: Laterality: right Lung location: unspecified part of lung Qualified Code(s): J18.9 - Pneumonia, unspecified organism (4) Altered mental state: Unresponsive Status: Acute Qualifiers: Altered mental status type: unspecified Qualified Code(s): R41.82 - Altered mental status, unspecified (5) Lactic acidosis: Status: Acute (6) Diabetes mellitus: Sliding scale Status: Acute (7) Acute kidney injury: Fluids discontinued. Patient made comfort Status: Acute (8) Atrial fibrillation: Status: Acute (9) NSTEMI (non-ST elevated myocardial infarction): Status: Acute (10) Hypertension: Changed to comfort measures Status: Acute (11) Hypothyroid: Change to comfort measures Status: Acute (12) COPD (chronic obstructive pulmonary disease): Changed to comfort measures Status: Acute (13) Coronary artery disease: Status: Acute (14) PAD (peripheral artery disease): Status: Acute Additional A&P Information Dementia, severe Past history of CVA with left hemiplegia Continue comfort measures Attestations Medical Necessity Statement*: Needs continued hospitalization to provide comfort measures in this patient in active dying process from pneumonia. Coding Level of Care Code Acute Internal Control Consultant for Chg Fwd Diagnoses Septic shock A41.9; R65.21 Acute respiratory failure with hypoxia J96.01 Community acquired pneumonia J18.9 Laterality: right Lung location: unspecified part of lung Altered mental state R41.82 Altered mental status type: unspecified Lactic acidosis E87.2 Diabetes mellitus E11.9 Acute kidney injury N17.9 Atrial fibrillation I48.91 NSTEMI (non-ST elevated myocardial infarction) I21.4 Hypertension I10 Hypothyroid E03.9 COPD (chronic obstructive pulmonary disease) J44.9 Coronary artery disease I25.10 PAD (peripheral artery disease) I73.9
[2020-02-04] MEDS: morphine 4 mg/mL SDV 1 mL 2 MG IVP (10:52)
--- NOTE | 2020-02-04 11:01 | PC.SOCIAL ---
IMM Not Given Page 2 of IMM not given as patient is not expected to discharge from [facility] and will here.
[2020-02-04 12:00] VITALS: RESP 32
--- NOTE | 2020-02-04 12:27 | P.DS_ITS ---
Discharge Providers Date of Admission: 02/01/20 23:02 Date of Discharge: February 04, 2020 Attending Provider at Admission: Ryan Luna MD Attending Provider at Discharge: Amauri Robin MD Primary Care Provider: Oliver Nowak Diagnoses at Discharge Discharge Diagnosis (1) Septic shock: Status: Acute (2) Acute respiratory failure with hypoxia: Status: Acute (3) Community acquired pneumonia: Status: Acute Qualifiers: Laterality: right Lung location: unspecified part of lung Qualified Code(s): J18.9 - Pneumonia, unspecified organism (4) Altered mental state: Status: Acute Qualifiers: Altered mental status type: unspecified Qualified Code(s): R41.82 - Altered mental status, unspecified (5) Lactic acidosis: Status: Acute (6) Diabetes mellitus: Status: Acute (7) Acute kidney injury: Status: Acute (8) Atrial fibrillation: Status: Acute (9) NSTEMI (non-ST elevated myocardial infarction): Status: Acute (10) Hypertension: Status: Acute (11) Hypothyroid: Status: Acute (12) COPD (chronic obstructive pulmonary disease): Status: Acute (13) Coronary artery disease: Status: Acute (14) PAD (peripheral artery disease): Status: Acute Reason for Visit Reason for Visit: Reason For Visit: SOB Hospital Course Hospital Course: Madelin is an 84-year-old white female with underlying dementia who presented to the hospital with pneumonia and sepsis. IV antibiotics were started. She was placed on pressors. She was intubated. She was sent to the ICU. Covid 19 testing was ordered. In view of her multiorgan dysfunction the hospitalist on spoke to family members regarding healthcare directives. After reviewing things, family decided to make the patient comfort measures. Comfort wagers were continued, until discharge back to the nursing facility with continued comfort measures on February 03. At that time the patient was unresp onsive, afebrile, and appeared comfortable. Vital signs were stable with the exception of oxygen saturation which was in the mid 80s. Covid 19 testing as well as influenza testing done in the hospital was noted to be negative. Physical Exam Narrative: EXAM NARRATIVE: See exam from today Discharge Data Data Completed and Pending: Completed Studies During Hospitalization Category Date Time Status CT angio chest w abd pel w con Urge nt Cat Scan 02/01/20 19:[address] head wo con* 7 0450 Urgent Cat Scan 02/01/20 19:43 Completed XR chest 1V faisal ble [id number] Routine Exams 02/02/20 01:43 Completed XR chest 1V faisal ble 38019 Urgent Exams 02/01/20 19:43 Completed Pending at discharge Category Date Time Status ABG FULL [Arteria l Blood Gas Full] Routine Lab 02/02/20 00:40 Results Blood Culture Sta t Lab 02/01/20 19:47 Results Urine Culture Sta t Lab 02/01/20 01:00 Results Vitals: Last Vital Signs Temp 98.9 F 02/02/20 16:00 Pulse 92 02/04/20 04:00 Resp 32 H 02/04/20 12:00 BP 98/54 02/03/20 08:00 Pulse Ox 80 L 02/04/20 04:00 Discharge Plan Discharge Patient Disposition: Xfer SNF Condition: Stable Prescriptions: New morphine concentrate 100 mg/5 mL (20 mg/mL) solution 10 mg BUCCAL Q2H PRN (Reason: pain) Qty: 30 RF: 0 lorazepam 2 mg/mL concentrate 1 mg BUCCAL Q4H PRN (Reason: anxiety) Qty: 30 RF: 0 atropine [Isopto Atropine] 1 % Drops 4 drp sublingual Q2H PRN (Reason: Secretions) Qty: 30 RF: 0 Discontinued albuterol sulfate 2.5 mg /3 mL (0.083 %) solution for nebulization 2.5 mg INHALATION Q6H RF: 0 allopurinol 300 mg tablet 150 mg PO DAILY RF: 0 amlodipine 10 mg tablet 10 mg PO DAILY RF: 0 aspirin 81 mg tablet,delayed release (DR/EC) 81 mg PO DAILY RF: 0 carvedilol 12.5 mg tablet 12.5 mg PO BID RF: 0 citalopram 20 mg tablet 20 mg PO DAILY RF: 0 Eliquis 5 mg tablet 5 mg PO BID RF: 0 famotidine 20 mg tablet 20 mg PO BID RF: 0 fluticasone furoate 50 mcg/actuation blister with device 1 inh INHALATION .twice daily RF: 0 gabapentin 300 mg capsule 300 mg PO TID RF: 0 insulin aspart U-100 [Novolog Flexpen U-100 Insulin] 100 unit/mL (3 mL) insulin pen See Rx Instructions SUBCUT TID RF: 0 memantine 5 mg tablet 5 mg PO BID RF: 0 multivitamin [Daily-Mayra] Tablet 1 tab PO DAILY RF: 0 olanzapine 2.5 mg tablet 2.5 mg PO DAILY RF: 0 potassium chloride 10 mEq capsule, extended release 10 meq PO DAILY RF: 0 levothyroxine 50 mcg capsule 50 mcg PO DAILY RF: 0 simvastatin 20 mg tablet 20 mg PO DAILY RF: 0 tramadol 50 mg tablet 50 mg PO Q8H PRN (Reason: Pain) RF: 0 Tresiba FlexTouch U-100 100 unit/mL (3 mL) insulin pen 30 unit SUBCUT DAILY RF: 0 lisinopril 5 mg tablet 5 mg PO DAILY RF: 0 polyethylene glycol 3350 17 gram Powder In Packet 17 g PO DAILY RF: 0 Visine 0.05 % Drops 2 drp OPHTHALMIC (EYE) BID RF: 0 lidocaine 5 % Adhesive Patch,Medicated 1 patch TOPICAL DAILY RF: 0 Colace 100 mg Capsule 200 mg PO DAILY RF: 0 ipratropium bromide 0.02 % Solution 2.5 ml INHALATION Q6H PRN (Reason: Shortness Of Breath) RF: 0 28 mg iron- 800 mcg Tablet 1 tab PO DAILY RF: 0 MediHoney (honey) 80 % Gel 1 applic TOPICAL DAILY RF: 0 Discharge Orders: Discharge Order (Routine); Ordered 02/04/20 Ordered By: Amauri Robin Referrals: Jaja Owens MD [Family Provider] - Oliver Nowak [Primary Care Provider] - 4-7 days Discharge Diet: As Directed Discharge Activity: Bedrest Activity Restrictions/Additional Instructions: Discharged on comfort measures Discharge Attestations Time Spent in Discharge Care*: greater than 30 min Quality Metrics Clinical Quality Measures During this hospital stay, did patient experience: None Coding Level of Care Code Acute Regulatory Submissions Associate for Chg Fwd Diagnoses Septic shock A41.9; R65.21 Acute respiratory failure with hypoxia J96.01 Community acquired pneumonia J18.9 Laterality: right Lung location: unspecified part of lung Altered mental state R41.82 Altered mental status type: unspecified Lactic acidosis E87.2 Diabetes mellitus E11.9 Acute kidney injury N17.9 Atrial fibrillation I48.91 NSTEMI (non-ST elevated myocardial infarction) I21.4 Hypertension I10 Hypothyroid E03.9 COPD (chronic obstructive pulmonary disease) J44.9 Coronary artery disease I25.10 PAD (peripheral artery disease) I73.9
[2020-02-04 12:30] VITALS: BP 108/65; PULSE 103; RESP 32; TEMP 37.7; O2SAT 87
[2020-02-04 12:59] VITALS: RESP 32; TEMP 37.2
== END 2020-02-04 15:43 | disposition home health service (06) | DRG 871 ==
LOC: ER 20:13 → CSU 23:15 → ICU 02-02 00:44 → MEDSURG 02-03 09:11
PROVIDERS: Student in an Organized Health Care Education/Training Program; Admitting Provider Family Medicine; Emergency Provider Emergency Medicine; Family Provider Family Medicine; PCP Family Medicine; Visit Provider Internal Medicine
DX: A41.9 Sepsis, unspecified organism (principal); R65.21 Severe sepsis with septic shock; J18.9 Pneumonia, unspecified organism; J96.01 Acute respiratory failure with hypoxia; I21.A1 Myocardial infarction type 2; I69.954 Hemiplegia and hemiparesis following unspecified cerebrovascular disease affecting left non-dominant side; N17.9 Acute kidney failure, unspecified; E87.2 Acidosis; Z66 Do not resuscitate; I69.920 Aphasia following unspecified cerebrovascular disease; I69.921 Dysphasia following unspecified cerebrovascular disease; I69.922 Dysarthria following unspecified cerebrovascular disease; I25.10 Atherosclerotic heart disease of native coronary artery without angina pectoris; Z95.5 Presence of coronary angioplasty implant and graft; E11.42 Type 2 diabetes mellitus with diabetic polyneuropathy; F03.90 Unspecified dementia, unspecified severity, without behavioral disturbance, psychotic disturbance, mood disturbance, and anxiety; Z86.718 Personal history of other venous thrombosis and embolism; Z79.01 Long term (current) use of anticoagulants; I10 Essential (primary) hypertension; E78.5 Hyperlipidemia, unspecified; J44.9 Chronic obstructive pulmonary disease, unspecified; F41.8 Other specified anxiety disorders; F32.9 Major depressive disorder, single episode, unspecified; E03.9 Hypothyroidism, unspecified; M10.9 Gout, unspecified; E87.5 Hyperkalemia; Z51.5 Encounter for palliative care; N28.89 Other specified disorders of kidney and ureter; I48.91 Unspecified atrial fibrillation; M19.90 Unspecified osteoarthritis, unspecified site
CPT/HCPCS: 12345; 36415; 36416; 36600; 70450; 71045; 71275; 74177; 80048; 80051; 80053; 80061; 81001; 82140; 82533; 82803; 82810; 82962; 83605; 83690; 83735; 83880; 83986; 84145; 84443; 84484; 85025; 85610; 86140; 87040; 87077; 87086; 87186; 87635; 87641; 87804; 93005; 94002; 94640; 94799; 96372; 96374; 96375; 99283; A4570; C9113; J0456; J1650; J1815; J2060; J2270; J2543; J3010; J3370; J3490; J7030; J7050